=== PATIENT | male | born 1960 | race Caucasian/White ===

== ENCOUNTER 2017-09-04 09:51 | Inpatient (IN) | payer OTHER ==
[~2017-09-04] VITALS: Ht 172.7 cm; Wt 94.4 kg
[2017-09-04] MEDS ORDERED: ASPI-496 PO (10:46)
[2017-09-04 10:55] LABS: BASOPHILS # (AUTO) 0.04 x10^3/uL (0-0.1); BASOPHILS % (AUTO) 1 % (0-1); EOSINOPHILS # (AUTO) 0.13 x10^3/uL (0-0.4); EOSINOPHILS % (AUTO) 2 % (1-7); LYMPHOCYTES # (AUTO) 2.84 x10^3/uL (1-3.4); LYMPHOCYTES % (AUTO) 39 % (22-44); MD NO; MEAN CORPUSCULAR HEMOGLOBIN 30.6 pg (27.5-34.5); MEAN CORPUSCULAR HGB CONC 34.5 g/dL (33.2-36.2); MEAN CORPUSCULAR VOLUME 88.9 fL (81-97); MEAN PLATELET VOLUME 7.6 fL (7.4-10.4); MONOCYTES # (AUTO) 0.56 x10^3/uL (0.2-0.8); MONOCYTES % (AUTO) 8 % (2-9); NEUTROPHILS # (AUTO) 3.63 x10^3/uL (1.8-6.8); NEUTROPHILS % (AUTO) 50 % (42-75); PLATELET COUNT 233 x10^3/uL (130-400); RED BLOOD COUNT 4.93 x10^6/uL (4.38-5.82); RED CELL DISTRIBUTION WIDTH 13.1 % (9.4-14.8)
[2017-09-04 11:06] LABS: ALANINE AMINOTRANSFERASE 36 U/L (12-78); ALBUMIN 3.8 g/dL (3.4-5.0); ANION GAP 6 mmol/L (5-15); CALCIUM 8.5 mg/dL (8.5-10.1); CHLORIDE 110 mmol/L (98-107); CREATININE 0.81 mg/dL (0.7-1.3)
[2017-09-04 11:10] LABS: ALKALINE PHOSPHATASE 50 U/L (45-117); BILIRUBIN,TOTAL 0.6 mg/dL (0.2-1.0); TOTAL PROTEIN 7.3 g/dL (6.4-8.2); TROPONIN I < 0.015 ng/mL (0.000-0.045)
[2017-09-04] MEDS ORDERED: NITROGLYCERIN 0.4 MG/SPRAY SL PRN (13:00)
[2017-09-04] MEDS ORDERED: morphine SULFATE 10 MG/ML, 1ML IV PRN (13:00)
[2017-09-04] MEDS ORDERED: NITROGLYCERIN SINGLE TAB 0.4 MG SL PRN (13:00)
[2017-09-04] MEDS ORDERED: ONDANSETRON ODT 4 MG PO PRN (13:00)
[2017-09-04] MEDS ORDERED: ACETAMINOPHEN 325 MG TABLET PO PRN (13:00)
[2017-09-04] MEDS ORDERED: DOCUSATE 100 MG CAPSULE PO PRN (13:00)
[2017-09-04] MEDS ORDERED: ASPIRIN 325 MG TABLET EC PO ONE (13:00)
[2017-09-04] MEDS ORDERED: ENOXAPARIN 40 MG/0.4 ML SQ SCH ×2 (13:00→21:00)
[2017-09-04] MEDS ORDERED: NITROGLYCERIN 0.4 MG BOTTLE (25 TABS) SL PRN (13:00)
[2017-09-04 14:21] VITALS: BP 147/79
[2017-09-04 14:30] VITALS: BP_SYST 136; BP_SYST 149; BP_SYST 157; BP_DIAS 74; BP_DIAS 83; BP_DIAS 88
[2017-09-04] MEDS: METHOCARBAMOL 500 MG TABLET PO SCH ×2 (14:53→20:36)
[2017-09-04] MEDS: SODIUM CHLORIDE 0.9% 1,000 ML IV SCH (14:54)
[2017-09-04 16:43] LABS: MICROSCOPIC NOT IND
[2017-09-04 16:48] LABS: CULTURE INDICATED? NO
[2017-09-04 17:47] LABS: TROPONIN I < 0.015 ng/mL (0.000-0.045)
[2017-09-04 19:09] VITALS: BP 143/70
[2017-09-04] MEDS: FAMOTIDINE 20 MG TABLET PO SCH (20:36)
[2017-09-04 23:57] LABS: TROPONIN I < 0.015 ng/mL (0.000-0.045)
[2017-09-05] MEDS: SODIUM CHLORIDE 0.9% 1,000 ML IV SCH (00:21)
[2017-09-05 00:36] VITALS: BP 139/82
[2017-09-05 04:45] LABS: BASOPHILS # (AUTO) 0.06 x10^3/uL (0-0.1); BASOPHILS % (AUTO) 1 % (0-1); EOSINOPHILS # (AUTO) 0.32 x10^3/uL (0-0.4); EOSINOPHILS % (AUTO) 4 % (1-7); LYMPHOCYTES # (AUTO) 3.61 x10^3/uL (1-3.4); LYMPHOCYTES % (AUTO) 48 % (22-44); MD NO; MEAN CORPUSCULAR HEMOGLOBIN 30.9 pg (27.5-34.5); MEAN CORPUSCULAR HGB CONC 34.3 g/dL (33.2-36.2); MEAN PLATELET VOLUME 7.9 fL (7.4-10.4); MONOCYTES # (AUTO) 0.56 x10^3/uL (0.2-0.8); MONOCYTES % (AUTO) 7 % (2-9); NEUTROPHILS # (AUTO) 3.02 x10^3/uL (1.8-6.8); NEUTROPHILS % (AUTO) 40 % (42-75); PLATELET COUNT 220 x10^3/uL (130-400); RED BLOOD COUNT 4.86 x10^6/uL (4.38-5.82); RED CELL DISTRIBUTION WIDTH 13.6 % (9.4-14.8)
[2017-09-05 04:54] LABS: ANION GAP 6 mmol/L (5-15); CALCIUM 8.2 mg/dL (8.5-10.1); CHLORIDE 112 mmol/L (98-107); CHOLESTEROL, TOTAL 180 mg/dL (140-239); TRIGLYCERIDES 198 mg/dL (50-200); VLDL CHOLESTEROL 40 mg/dL (0-25)
[2017-09-05 04:56] LABS: CHOL/HDL RATIO 5.6; HDL CHOL % 18 % (26-37); HDL CHOLESTEROL (DIRECT) 32 mg/dL (40-60); LDL CHOLESTEROL,CALCULATED 108 mg/dL (54-169); LDL/HDL RATIO 3.4 (0.5-3.0)
[2017-09-05] MEDS: METHOCARBAMOL 500 MG TABLET PO SCH ×2 (05:14→11:42)
[2017-09-05] MEDS ORDERED: ASPIRIN 325 MG TABLET EC PO SCH (06:00)
[2017-09-05 07:55] VITALS: BP 149/79
[2017-09-05] MEDS: FAMOTIDINE 20 MG TABLET PO SCH (11:42)
[2017-09-05] MEDS ORDERED: FAMO20TA7 PO (14:25)
[2017-09-05] MEDS ORDERED: METH500T7 PO (14:25)
[2017-09-05] MEDS ORDERED: IBUP-1484 PO (14:25)
[2017-09-05] MEDS ORDERED: LISI5TAB7 PO (14:25)
[2017-09-05] MEDS ORDERED: IBUPROFEN 200 MG TABLET PO PRN (14:30)
[2017-09-06] MEDS ORDERED: LISINOPRIL 5 MG TABLET PO SCH (09:00)
== END 2017-09-05 15:28 | disposition home or self-care (01) | DRG 74 ==
LOC: ED 12:19 → EDIP 12:20 → ED 12:26 → 5SO 13:49
PROVIDERS: ADMIT Internal Medicine; ATTEND Internal Medicine
DX: G90.8 Other disorders of autonomic nervous system (principal); E83.42 Hypomagnesemia; Q23.1 Congenital insufficiency of aortic valve; M54.81 Occipital neuralgia; F17.210 Nicotine dependence, cigarettes, uncomplicated; G89.29 Other chronic pain; H83.09 Labyrinthitis, unspecified ear; I10 Essential (primary) hypertension; I45.10 Unspecified right bundle-branch block; J32.9 Chronic sinusitis, unspecified; K21.9 Gastro-esophageal reflux disease without esophagitis; M54.12 Radiculopathy, cervical region
CPT/HCPCS: 36415; 70450; 71046; 78452; 80048; 80053; 80061; 80307; 81003; 83735; 84443; 84484; 85025; 93005; 93017; 93306; 93880; 99285; A9502; C9898; J7030

== ENCOUNTER 2018-08-06 12:07 | Emergency (ER) | payer OTHER ==
[~2018-08-06] VITALS: Ht 172.7 cm; Wt 88.5 kg
[~2018-08-06 12:07] MED LIST: ASPI-496 PO; FAMO20TA7 PO; IBUP-1484 PO; LISI5TAB7 PO; METH500T7 PO
--- NOTE | 2018-08-06 12:55 | NUR ---
PT AMBULATORY TO ROOM 38 W/ C/O CP X 1 WK AND R FOOT PAIN X 2 WKS. PT STATES HX NECK ISSUES AND WANTS TO ENSURE PROBLEM IS NOT RELATED. PT DENIES ANY CARDIAC/PULMONARY HX. PT RESTING ON GURNEY. NADN. VSS. MONITORS IN PLACE. WARM BLANKET PROVIDED.
[2018-08-06 13:11] LABS: BASOPHILS # (AUTO) 0.04 x10^3/uL (0-0.1); BASOPHILS % (AUTO) 0 % (0-1); EOSINOPHILS # (AUTO) 0.19 x10^3/uL (0-0.4); EOSINOPHILS % (AUTO) 2 % (1-7); LYMPHOCYTES # (AUTO) 3.42 x10^3/uL (1-3.4); LYMPHOCYTES % (AUTO) 38 % (22-44); MD NO; MEAN CORPUSCULAR HEMOGLOBIN 31.4 pg (27.5-34.5); MEAN CORPUSCULAR HGB CONC 34.7 g/dL (33.2-36.2); MEAN CORPUSCULAR VOLUME 90.3 fL (81-97); MEAN PLATELET VOLUME 7.7 fL (7.4-10.4); MONOCYTES # (AUTO) 0.68 x10^3/uL (0.2-0.8); MONOCYTES % (AUTO) 8 % (2-9); NEUTROPHILS # (AUTO) 4.58 x10^3/uL (1.8-6.8); NEUTROPHILS % (AUTO) 51 % (42-75); PLATELET COUNT 253 x10^3/uL (130-400); RED BLOOD COUNT 5.05 x10^6/uL (4.38-5.82); RED CELL DISTRIBUTION WIDTH 13.3 % (9.4-14.8)
[2018-08-06 13:28] LABS: ALBUMIN 3.9 g/dL (3.4-5.0); ANION GAP 5 mmol/L (5-15); CHLORIDE 106 mmol/L (98-107); CREATININE 0.92 mg/dL (0.7-1.3)
[2018-08-06 13:32] LABS: TROPONIN I < 0.015 ng/mL (0.000-0.045)
[2018-08-06 13:49] VITALS: BP 119/66
--- NOTE | 2018-08-06 13:50 | NUR ---
PT RESTING ON CYN. NADN. POTTSS. AWARE OF POC FOR DC.
== END 2018-08-06 14:07 ==
LOC: ED 14:01
DX: R07.89 Other chest pain (principal); M79.661 Pain in right lower leg; I10 Essential (primary) hypertension; K21.9 Gastro-esophageal reflux disease without esophagitis
CPT/HCPCS: 36415; 71046; 80048; 82040; 83880; 84484; 85025; 93005; 99284

== ENCOUNTER 2019-11-16 16:12 | Emergency (ER) | payer SELFPAY ==
[~2019-11-16] VITALS: Ht 172.7 cm; Wt 84.0 kg
[~2019-11-16 16:12] MED LIST changes: -IBUP-1484 PO; +IBUP-1902 PO
--- NOTE | 2019-11-16 16:21 | NUR ---
BREAK RN: EKG DONE IN TRIAGE.
--- NOTE | 2019-11-16 16:35 | NUR ---
FIRST CONTACT WITH PT. PT C/O LEFT SIDED CHEST PAIN, INTERMITTENT SINCE LATE FRIDAY. PT ALSO STATES HE HAS CHRONIC LEFT SHOULDER ISSUES. DENIES DIZZINESS, DIAPHORESIS, NAUSEA, OR SOB. PT STATES THAT HE DOESN'T NOTICE ANYTHING MAKING THE PAIN BETTER OR WORSE, NOTES THE PAIN MOST WHEN HE IS AT REST. PT STATED " I DON'T HAVE ANY PAIN NOW." PT'S AOX4. RESPS EVEN AND UNLABORED. 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 SLL MONITORS IN PLACE. CALL LIGHT WITHIN REACH.
[2019-11-16 16:37] VITALS: BP 125/60
[2019-11-16 17:09] LABS: TROPONIN I < 0.015 ng/mL (0.000-0.045)
--- NOTE | 2019-11-16 17:09 | NUR ---
BG 126.
--- NOTE | 2019-11-16 17:39 | NUR ---
Patient given discharge instructions and they have confirmed that they understand the instructions. Patient ambulatory with steady gait.
== END 2019-11-16 17:40 | disposition home or self-care (01) ==
LOC: ED 17:30
DX: R07.89 Other chest pain (principal); R42 Dizziness and giddiness; I45.10 Unspecified right bundle-branch block; I10 Essential (primary) hypertension; K21.9 Gastro-esophageal reflux disease without esophagitis; Z87.891 Personal history of nicotine dependence
CPT/HCPCS: 36415; 82962; 84484; 93005; 99284